=== PATIENT | male | born 1980 | race Caucasian/White ===

== ENCOUNTER 2017-10-04 17:31 | Emergency (ER) | payer OTHER ==
[~2017-10-04] VITALS: Ht 182.9 cm; Wt 113.4 kg
[~2017-10-04 17:31] MED LIST: ALBU90OI INH; AMLO10 PO; AMOCLA875 PO; Amlodipine Bes2.5 MG PO; BENZ100A PO; BUSP10 PO; CALC1.25T PO; CARI350 PO; CEPH500 PO; CYCL10 PO; DEXGUASY PO; DIAZ10 PO; DIAZ5 PO; DIVA500EC PO; DIVA500ER PO; HYDACE10B PO; HYDACE5 PO; HYDCHL12.5 PO; IBUP400 PO; IBUP600 PO; IBUP800 PO; K-Dur20 MEQ PO; KETO10 PO; LEVE500 PO; LIDO2L TP; LOPE2C PO; LORA1 PO; METPRE4DP PO; NAPR220 PO; NAPR500 PO; NORT10 PO; Norco 5-325 Ta1 EACH PO; OXYACE5T PO; PENVK500 PO; PROM25 PO; RANI150 PO; RXCYCL10 PO; RXOXYACE PO; RXPROM25 PO; RXTRAM50 PO; SEIZURE MEDICATION; TRAM50 PO; UNKNOWN BP MED; VALS80 PO; [UNRECOGNIZED DRUG - REMARK]
[2017-10-04 18:12] LABS: BASOPHILS ABSOLUTE AUTO 0.01 K/mm3 (0.00-0.23); BASOPHILS PERCENT AUTO 0 % (0-2); EOSINOPHILS PERCENT AUTO 0 % (0-6); Hematocrit 41.7 % (37.0-53.0); Hemoglobin 14.7 g/dL (13.5-17.5); IMMATURE GRAN ABSOLUTE AUTO 0.03 K/mm3 (0.00-0.10); IMMATURE GRAN PERCENT AUTO 1 % (0-1); LYMPHOCYTES ABSOLUTE AUTO 0.78 K/mm3 (0.84-5.20); LYMPHOCYTES PERCENT AUTO 14 % (21-46); MONOCYTES ABSOLUTE AUTO 0.44 K/mm3 (0.16-1.47); MONOCYTES PERCENT AUTO 8 % (4-13); Mean Corpuscular HGB 30.4 pg (26.0-34.0); Mean Corpuscular HGB Conc 35.3 g/dL (31.5-36.5); Mean Corpuscular Volume 86 fL (80-100); Mean Platelet Volume 9.9 fL (9.1-12.4); NEUTROPHILS ABSOLUTE AUTO 4.25 K/mm3 (1.96-9.15); NEUTROPHILS PERCENT AUTO 77 % (41-73); Platelet Count 186 K/mm3 (150-400); RDW Coefficient Variation 11.9 % (11.7-14.2); RDW Standard Deviation 38.1 fL (35.1-46.3); Red Blood Cell Count 4.84 M/mm3 (4.30-5.90); White Blood Cell Count 5.51 K/mm3 (4.00-11.30)
[2017-10-04 18:34] LABS: Alanine Aminotransfer (ALT/SGP 40 U/L (12-78); Albumin, Blood 3.1 g/dL (3.4-5.0); Albumin/Globulin Ratio 0.8 (0.8-1.8); Alk Phos 42 U/L (50-136); Anion Gap 12 mmol/L (6-16); Aspartate Aminotrans (AST/SGOT 64 U/L (12-37); Bilirubin, Total 0.6 mg/dL (0.1-1.0); Blood Urea Nitrogen 14 mg/dL (8-24); CO2, Blood 26 mmol/L (21-32); Calcium, Blood 7.3 mg/dL (8.5-10.1); Chloride, Blood 92 mmol/L (98-108); Creatinine, Blood 0.88 mg/dL (0.60-1.20); Globulin, Blood 4.1 g/dL (2.2-4.0); Glomerular Filtration Rate >60 (60-); Glucose, Blood 115 mg/dL (70-99); Potassium, Blood 3.4 mmol/L (3.5-5.5); Sodium, Blood 130 mmol/L (136-145); Total Protein, Blood 7.2 g/dL (6.4-8.2)
[2017-10-04] MEDS ORDERED: LEVO750 PO (21:36)
[2017-10-04 22:12] LABS: Influenza A Positive (NEGATIVE); Influenza B Negative (NEGATIVE)
== END 2017-10-04 21:59 | disposition left against medical advice (07) ==
LOC: ER 17:31
PROVIDERS: Emergency Medicine
DX: A41.9 Sepsis, unspecified organism (principal); R65.20 Severe sepsis without septic shock; J18.9 Pneumonia, unspecified organism; J96.91 Respiratory failure, unspecified with hypoxia; Z79.899 Other long term (current) drug therapy; Z79.2 Long term (current) use of antibiotics
CPT/HCPCS: 36415; 71046; 80053; 83605; 85025; 87040; 87804; 93005; 93010; 94640; 96361; 96374; 99283; J1956; J7030

== ENCOUNTER 2017-11-30 18:02 | Emergency (ER) | payer OTHER ==
[~2017-11-30] VITALS: Ht 177.8 cm; Wt 135.6 kg
[~2017-11-30 18:02] MED LIST changes: +LEVO750 PO
[2017-11-30] MEDS ORDERED: Crutch1 EACH MISC (19:35)
== END 2017-11-30 19:45 | disposition home or self-care (01) ==
LOC: ER 18:02
DX: S89.92XA Unspecified injury of left lower leg, initial encounter (principal); Z79.899 Other long term (current) drug therapy; G43.909 Migraine, unspecified, not intractable, without status migrainosus; W18.39XA Other fall on same level, initial encounter
CPT/HCPCS: 73562-LT; 99283

== ENCOUNTER 2018-12-25 14:50 | Day surgery (SDC) | payer OTHER ==
[~2018-12-25 14:50] MED LIST changes: +Crutch1 EACH MISC
== END 2018-12-26 23:09 | disposition home or self-care (01) ==
LOC: RAD 14:50
DX: M23.92 Unspecified internal derangement of left knee (principal)
CPT/HCPCS: 20610; 73701; 77002; A9577; Q9967

== ENCOUNTER 2019-04-11 13:16 | Emergency (ER) | payer OTHER ==
[~2019-04-11] VITALS: Ht 182.9 cm; Wt 129.3 kg
[2019-04-11] MEDS ORDERED: CYCL10 PO (14:28)
[2019-04-11] MEDS ORDERED: IBUP600 PO (14:28)
== END 2019-04-11 14:47 | disposition home or self-care (01) ==
LOC: ER 13:16
DX: S39.012A Strain of muscle, fascia and tendon of lower back, initial encounter (principal); G43.909 Migraine, unspecified, not intractable, without status migrainosus; Z79.899 Other long term (current) drug therapy; X58.XXXA Exposure to other specified factors, initial encounter
CPT/HCPCS: 72100; 99283-25

== ENCOUNTER 2020-06-24 12:41 | Emergency (ER) | payer OTHER ==
[~2020-06-24] VITALS: Ht 182.9 cm; Wt 136.1 kg
[2020-06-24 13:28] LABS: BASOPHILS ABSOLUTE AUTO 0.09 K/mm3 (0.00-0.23); BASOPHILS PERCENT AUTO 1 % (0-2); EOSINOPHILS ABSOLUTE AUTO 0.04 K/mm3 (0.00-0.68); EOSINOPHILS PERCENT AUTO 0 % (0-6); Hematocrit 45.1 % (37.0-53.0); Hemoglobin 15.3 g/dL (13.5-17.5); IMMATURE GRAN ABSOLUTE AUTO 0.09 K/mm3 (0.00-0.10); IMMATURE GRAN PERCENT AUTO 1 % (0-1); LYMPHOCYTES ABSOLUTE AUTO 1.61 K/mm3 (0.84-5.20); LYMPHOCYTES PERCENT AUTO 15 % (21-46); MONOCYTES ABSOLUTE AUTO 0.83 K/mm3 (0.16-1.47); MONOCYTES PERCENT AUTO 8 % (4-13); Mean Corpuscular HGB Conc 33.9 g/dL (31.5-36.5); Mean Corpuscular Volume 88 fL (80-100); Mean Platelet Volume 9.6 fL (9.1-12.4); NEUTROPHILS ABSOLUTE AUTO 8.13 K/mm3 (1.96-9.15); NEUTROPHILS PERCENT AUTO 75 % (41-73); Platelet Count 362 K/mm3 (150-400); RDW Coefficient Variation 11.9 % (11.7-14.2); RDW Standard Deviation 39.2 fL (35.1-46.3); White Blood Cell Count 10.79 K/mm3 (4.00-11.30)
[2020-06-24 13:39] LABS: Albumin, Blood 3.9 g/dL (3.4-5.0); Albumin/Globulin Ratio 0.9 (0.8-1.8); Bilirubin, Total 0.8 mg/dL (0.1-1.0); Bun/Creatinine Ratio 14.4 (12.0-20.0); Calcium, Blood 10.3 mg/dL (8.5-10.1); Creatinine, Blood 1.53 mg/dL (0.60-1.20); Globulin, Blood 4.2 g/dL (2.2-4.0); Potassium, Blood 3.3 mmol/L (3.5-5.5); Total Protein, Blood 8.1 g/dL (6.4-8.2)
[2020-06-24] MEDS ORDERED: TUMS500 MG PO (16:01)
[2020-06-24] MEDS ORDERED: Nortriptyline H10 MG PO (16:02)
[2020-06-24] MEDS ORDERED: FAMO10 PO (16:03)
[2020-06-24] MEDS ORDERED: CALCIUM CARBON500 M1 PO (16:04)
[2020-06-24 17:09] LABS: Source, Urine Clean Catch
[2020-06-24 17:15] LABS: Bilirubin, Urine Neg (Neg); Blood, Urine Neg (Neg); Glucose Qualitative, Urine Neg (Neg); Ketones, Urine Neg (Neg); Leukocyte Esterase, Urine Neg (Neg); Nitrite, Urine Neg (Neg); Protein, Urine Neg (Neg); Urobilinogen, Urine NORM (Normal)
[2020-06-24 17:28] LABS: Appearance, Urine Clear (Clear); Color, Urine Pale Yellow (P-Yellow)
== END 2020-06-24 17:35 | disposition home or self-care (01) ==
LOC: ER 12:41
PROVIDERS: Physician Assistant
DX: G40.909 Epilepsy, unspecified, not intractable, without status epilepticus (principal); T85.09XA Other mechanical complication of ventricular intracranial (communicating) shunt, initial encounter; Z79.899 Other long term (current) drug therapy
CPT/HCPCS: 36415; 70250; 70450; 71045; 74018; 80053; 81003; 85025; 99284-25